=== PATIENT | female | born 1995 | race Caucasian/White ===

== ENCOUNTER 2021-07-20 20:53 | Inpatient (IN) | payer MEDICAID, SELFPAY ==
[2021-07-20] VITALS (8 sets, daily range): BP systolic 110–126; BP diastolic 53–79; PULSE 92–107; RESP 24–37; TEMP 39.4–39.5; O2SAT 88–97; BMI 37.5; BMI 37.8
--- NOTE | 2021-07-20 21:34 | EKG12_ITS ---
Test Reason : SOB Blood Pressure : / mmHG Vent. Rate : 095 BPM Atrial Rate : 095 BPM P-R Int : 144 ms QRS Dur : 086 ms QT Int : 350 ms P-R-T Axes : 030 -20 007 degrees QTc Int : 439 ms Normal sinus rhythm Nonspecific T wave abnormality Poor R wave progression Abnormal ECG Confirmed by ROSIO LOPEZ, FRANCISCO JAVIER ([id number]), slot editor BRENDA JAFFE ([id number]) on 07/25/2021 10:20:20 AM Referred By: BB Confirmed By:FRANCISCO JAVIER AVELAR MD
--- NOTE | 2021-07-20 21:50 | RAD_ITS ---
INDICATION: sob EXAMINATION/TECHNIQUE: X-RAY - XR Chest 1 View COMPARISON: None. FINDINGS: Retrocardiac airspace opacities. Low lung volumes. The cardiomediastinal silhouette is unremarkable. No pleural effusion or pneumothorax. No acute osseous abnormalities. RAD/Chest 1 View (Portable) IMPRESSION: Retrocardiac airspace opacities concerning for infection.. Electronically Signed: Rufus Ferreira MD at 22:46 EDT Tel , Service support ,
[2021-07-20] MEDS: Ketorolac 15 MG/ML Vial IV (21:54)
[2021-07-20] MEDS: Ondansetron 4 MG/2 ML Vial IV (21:54)
[2021-07-20] MEDS: 0.9% Normal Saline 1,000 ML 1000 ML IV (21:54)
[2021-07-20 21:57] LABS: Absolute Lymphocyte Count 0.54 X10^3/uL (0.83-4.51); Absolute Neutrophil Count 1.9 X10^3/uL (2.0-7.7); Hematocrit 41.9 % (37-47); Hemoglobin 13.4 g/dL (12.0-15.0); Lymphocyte # 0.54 X10^3/ul (0.83-4.51); Mean Corpuscular Hgb 27.6 pg (27.0-32.0); Mean Corpuscular Volume 86.4 fL (81-99); Mean Platelet Vol. 11.5 fl (6.2-12.0); Monocyte# 0.11 X10^3/uL; Monocyte% 4.3 % (0-10); NRBC Flagged by Analyzer 0 % (0-5); Neutrophil # 1.91 X10^3/uL (2.7-7.7); Neutrophil % 74.3 % (47-70); POSITIVE COUNT YES; POSITIVE DIFFERENTIAL YES; Platelet Count 86 K/mm3 (150-450); RBC Distribution Width CV 12.9 % (11.6-14.6); RBC Distribution Width SD 40.5 fl (35.1-43.9); Red Blood Count 4.85 M/mm3 (4.2-5.4); White Blood Count 2.6 K/mm3 (4.4-11.0)
[2021-07-20 22:15] LABS: ALB/GLOB Ratio 0.9 RATIO (0.9-2.4); AST(SGOT) 24 U/L (15-37); Alanine Aminotransfer ALT/SGPT 22 U/L (13-56); Albumin, Serum 3.4 g/dL (3.2-5.0); Alkaline Phosphatase 70 U/L (45-117); Anion Gap 5 (5-15); BUN 9 mg/dL (7-18); BUN/Creat Ratio 12.4 RATIO (10-20); Calcium,Total 8.3 mg/dL (8.5-10.1); Chloride 106 mmol/L (98-107); Creatinine, Serum 0.72 mg/dL (0.55-1.02); Differential Indicated SCAN CRITERIA MET; EST Glomerular Filtration Rate 102 mL/min (>60); Est Glom Filt Rate - Afr Amer 123 mL/min (>60); Globulin 3.9 g/dL (2.2-4.2); Glucose 92 mg/dL (74-106); Lipase 42 U/L (73-393); Potassium 3.7 mmol/L (3.5-5.1); Protein, Total 7.3 g/dL (6.4-8.2); Sodium Level 139 mmol/L (136-145)
[2021-07-20 22:38] LABS: Differential Comment SCANNED; Platelet Estimate MOD DEC (ADEQ)
--- NOTE | 2021-07-20 23:22 | EX.ED.DYSGE1 ---
HPI History of Present Illness Chief Complaint: Shortness of Breath Narrative Narrative: Patient is evaluated for worsening shortness of breath and symptoms related to Covid. She was seen at [facility] yesterday where she was diagnosed with Covid. Patient states started with headache and progressed to loss of taste. She then developed chest tightness and shortness of breath. She has myalgias, fever and lightheadedness. She called 911 because she felt she is going to pass out. Yesterday she is prescribed a Z-Roderick, Zofran and is also been taking Mucinex and Tylenol. She is not had a Covid vaccine. Patient denied concern for and states she started her period today. [facility] Medical History History of miscarriage Morbid obesity Home Medications albuterol sulfate [Ventolin HFA] 2 puff INHALATION Q6H PRN 07/20/21 [History Last Taken 07/20/21 17:00] azithromycin [Zithromax Z-Roderick] mg PO 07/20/21 [History Last Taken Unknown] ondansetron [Zofran ODT] 4 mg PO Q6H 07/20/21 [History Last Taken Unknown] B12 2,000 mcg PO/SL 07/21/21 [History Last Taken 07/20/21 09:00] Bariatric Multivitamins 1 cap DAILY 07/21/21 [History Last Taken 07/20/21 09:00] Vitamin D3 8,000 units DAILY 07/21/21 [History Last Taken 07/20/21 09:00] Allergy/AdvReac Type Severity Reaction Status Date / Time latex Allergy Rash Verified 07/20/21 20:55 Surgical History History of gastric bypass Social History household members: spouse Smoking Status: Never smoker alcohol intake: never substance use type: does not use ROS ROS ED Constitutional Constitutional ED: Reports chills, fever(s) and sweats Eyes Eyes: Denies blurry vision or change in vision ENT ENT ED: Reports rhinorrhea and sore throat Cardiovascular Cardiovascular: Reports chest pain Respiratory/Chest Respiratory/Chest: Reports cough, dyspnea and dyspnea on exertion Gastrointestinal Gastrointestinal: Reports nausea; Denies abdominal pain, diarrhea or vomiting Genitourinary Genitourinary ED: Reports other Details: Decreased frequency of urination ; Denies dysuria or hematuria Musculoskeletal Musculoskeletal: Reports myalgias Integumentary Denies rash Neurologic Neurologic: Reports headache(s); Denies weakness EXAM Physical Exam Const Vital Signs: 07/20/21 20:56 07/20/21 21:02 07/20/21 21:08 Temperature 103.1 F H 103.1 F H Temperature Source Oral Oral Pulse Rate 103 H 102 H Respiratory Rate 30 H 37 H Respiratory Effort Short of Breath Respiratory Pattern Bradypnea Blood Pressure 119/53 L 110/79 Blood Pressure Mean 75 89 Pulse Ox 95 97 Oxygen Delivery Method Nasal Cannula Nasal Cannula Nasal Cannula Oxygen Flow Rate (L/min) 2 2 2 07/20/21 21:57 07/20/21 22:02 07/20/21 22:10 Temperature 103 F H Temperature Source Oral Pulse Rate 94 Respiratory Rate 25 H Respiratory Effort Respiratory Pattern Blood Pressure 126/78 H Blood Pressure Mean 94 Pulse Ox 96 94 94 Oxygen Delivery Method Room Air Nasal Cannula Nasal Cannula Oxygen Flow Rate (L/min) 2 2 07/20/21 23:00 07/20/21 23:28 Temperature 102.9 F H 102.9 F H Temperature Source Oral Oral Pulse Rate 92 92 Respiratory Rate 24 H 24 H Respiratory Effort Respiratory Pattern Blood Pressure 122/60 H 122/60 H Blood Pressure Mean 80 80 Pulse Ox 94 94 Oxygen Delivery Method Nasal Cannula Nasal Cannula Oxygen Flow Rate (L/min) 2 2 Positive well nourished and well developed Constitutional Narrative: Ill-appearing General Appearance ED: well developed HEENT Reports TM's clear and dry mucous membranes Tympanic Membrane ED: Yes TM's clear Mouth ED: Yes dry mucous membranes Mouth: dry mucous membranes Eyes PERRL and EOMs intact bilaterally Neck no lymphadenopathy and supple Neck Narrative: No meningeal signs Chest Wall inspection of chest normal Resp normal respiratory effort Auscultation: diminished lung sounds; Negative for wheezes Cardio regular rhythm and no murmurs Rate: tachycardic GI normal to inspection, nondistended, normoactive bowel sounds Palpation: soft Extremity normal to inspection General Extremety ED: Negative for edema or tenderness General Extremity: Negative for edema Neuro oriented x3 and CN's II-XII intact bilaterally Sensorium / Orientation: alert Motor Exam: general weakness Psych mental status grossly normal Skin no rashes or lesions noted MDM MDM MDM Narrative Medical decision making narrative: Patient evaluated for worsening symptom associated with COVID-19 infection. She is hypoxic in the emergency room. She has leukopenia of 2.6 which is consistent with a viral illness. She also has a thrombocytopenia of 86. No other significant electrolyte abnormalities. Patient is admitted for hypoxia she is 88% on room air. She is given IV fluids, Toradol and Zofran in the ER. After patient was admitted she did tell staff that she found that she is 1 week ago. Lab Data Labs: Laboratory Results - last 24 hr 07/20/21 07/20/21 07/20/21 21:00 21:00 21:00 WBC 2.6 L RBC 4.85 Hgb 13.4 Hct 41.9 MCV 86.4 MCH 27.6 MCHC 32.0 RDW Std Deviation 40.5 RDW Coeff of Qing 12.9 Plt Count 86 L MPV 11.5 Immature Gran % (Auto) 0.400 Neut % (Auto) 74.3 H Lymph % (Auto) 21.0 [place] % (Auto) 4.3 Eos % (Auto) 0.0 Baso % (Auto) 0.0 Absolute Neuts (auto) 1.9 L Absolute Lymphs (auto) 0.54 L Nucleated RBC % 0 Differential Comment SCANNED Diff Path Review May foll Platelet Estimate MOD DEC Sodium 139 Potassium 3.7 Chloride 106 Carbon Dioxide 28.0 Anion Gap 5 BUN 9 Creatinine 0.72 Estim Creat Clear Calc 108.90 Est GFR (MDRD) Af Amer 123 Est GFR (MDRD) Non-Af 102 BUN/Creatinine Ratio 12.4 Glucose 92 Calcium 8.3 L Phosphorus 2.9 Magnesium 2.0 Ferritin 162 Total Bilirubin 0.30 AST 24 ALT 22 Alkaline Phosphatase 70 Lactate Dehydrogenase 216 C-React Prot Ext Range 82.80 H B-Natriuretic Peptide Total Protein 7.3 Albumin 3.4 Globulin 3.9 Albumin/Globulin Ratio 0.9 Lipase 42 L Procalcitonin Serum , Qual 07/20/21 07/20/21 07/20/21 21:00 21:00 21:00 WBC RBC Hgb Hct MCV MCH MCHC RDW Std Deviation RDW Coeff of Qing Plt Count MPV Immature Gran % (Auto) Neut % (Auto) Lymph % (Auto) [place] % (Auto) Eos % (Auto) Baso % (Auto) Absolute Neuts (auto) Absolute Lymphs (auto) Nucleated RBC % Differential Comment Diff Path Review Platelet Estimate Sodium Potassium Chloride Carbon Dioxide Anion Gap BUN Creatinine Estim Creat Clear Calc Est GFR (MDRD) Af Amer Est GFR (MDRD) Non-Af BUN/Creatinine Ratio Glucose Calcium Phosphorus Magnesium Ferritin Total Bilirubin AST ALT Alkaline Phosphatase Lactate Dehydrogenase C-React Prot Ext Range B-Natriuretic Peptide 7.1 Total Protein Albumin Globulin Albumin/Globulin Ratio Lipase Procalcitonin 0.23 H Serum , Qual POSITIVE H Radiography Chest X-Ray - ED: 1 View, Read by ED Physician, Read by Radiologist and Left Infiltrate Diagnostic Testing: Radiology Impression Chest X-Ray 07/20/21 21:50 IMPRESSION: Retrocardiac airspace opacities concerning for infection.. Electronically Signed: Rufus Ferreira MD at 22:46 EDT Tel , Service support , Rhythm Strip Rhythm Strip: Sinus Rhythm Rate: 95 Ectopy: None EKG Initial EKG: Attestation: I personally reviewed and interpreted this EKG as follows: Interpretation: Sinus Rhythm Comments: Normal sinus rhythm at a rate of 95 Normal axis Normal intervals Normal ST segments Discharge Plan Dx/Rx/DC Orders Clinical Impression: Pneumonia due to COVID-19 virus, Hypoxia Disposition Disposition: Acute Care Hospital [facility] Discharge Date/Time: 07/20/21 23:55
[2021-07-20] MEDS: dexAMETHasone 10 MG/ML Vial 6 MG PO.IVFORM (23:34)
--- NOTE | 2021-07-20 23:47 | PCM.HP.STD ---
HPI - General General Date of Admission: 07/20/21 Date of Service: 07/20/21 Chief Complaint: COVID symptoms, worsening. HPI Narrative The patient is a 26 y/o F w/ PMHx: Obesity s/p 12/30/20 Yana-en-Y gastric bypass otherwise healthy, reporting A+ blood type, no history of COVID vaccination who presents to the [facility] ED on 07/20/21 with history of onset of Covid type symptoms starting 4 days prior on Sunday with fever, chills, frontal headaches, nausea with dry heaving as well as abdominal cramping without any associated diarrhea, body aches, cough and progressively worsening dyspnea prompting ED evaluation. Patient was initially diagnosed with positive Covid testing at [facility] on 07/19/2021. Patient's denies any current symptoms nor any other children at home. Patient is also unvaccinated. Work-up in the ED included T103.1, heart rate 103, 19/53, respiratory rate up to 37, patient down to 87 to 88% resting on room air although improved currently to 96% on 3 L nasal cannula, CBC with WC 2.6, human 13.4, platelet 86 with neutropenia and lymphopenia, CMP not marked appearing, lipase 42, chest x-ray with retrocardiac airspace opacities consistent with Covid pneumonia. In the ED patient administered NS bolus as well as IV Decadron 6 mg x 1. [facility] Medical History (Updated 07/21/21 @ 00:[address] Alecia Sal MD) History of miscarriage Morbid obesity Home Medications albuterol sulfate [Ventolin HFA] 2 puff INHALATION Q6H PRN 07/20/21 [History Last Taken Unknown] azithromycin [Zithromax Z-Roderick] mg PO 07/20/21 [History Last Taken Unknown] ondansetron [Zofran ODT] 4 mg PO Q6H 07/20/21 [History Last Taken Unknown] B12 2,000 mcg PO/SL 07/21/21 [History Last Taken 07/20/21 09:00] Bariatric Multivitamins 1 cap DAILY 07/21/21 [History Last Taken 07/20/21 09:00] Vitamin D3 8,000 units DAILY 07/21/21 [History Last Taken 07/20/21 09:00] Allergy/AdvReac Type Severity Reaction Status Date / Time latex Allergy Rash Verified 07/20/21 20:55 no significant family history (Patient denies marked maternal or paternal family history including HD, DM, CA.) Surgical History History of gastric bypass Social History (Updated 07/21/21 @ 00:[address] Alecia Sal MD) household members: spouse Smoking Status: Never smoker alcohol intake: never substance use type: does not use ROS ROS Narrative Admission Review of Systems: CONSTITUTIONAL: No weight loss, + fever, chills, weakness or fatigue. HEENT: + THOMAS. Eyes: No visual loss, blurred vision, double vision or yellow sclerae. Ears, Nose, Throat: No hearing loss, sneezing, congestion, runny nose or sore throat. SKIN: No rash or itching, lesions, wounds. CARDIOVASCULAR: + Pleuritic chest pain. No palpitations, edema, orthopnea, syncopal events. RESPIRATORY: + shortness of breath, cough without marked sputum, No wheezing, hemoptysis. GASTROINTESTINAL: + anorexia, nausea, vomiting, No abdominal pain, diarrhea, melena, BRBPR. GENITOURINARY: No dysuria, frequency, urgency or retention. NEUROLOGICAL: + headache, No dizziness, syncope, paralysis, ataxia, numbness or tingling in the extremities, focal weakness, change in bowel or bladder control, seizure. MUSCULOSKELETAL: + muscle, back pain, joint pain or stiffness. HEMATOLOGIC: No anemia, bleeding or bruising. LYMPHATICS: No enlarged nodes. No history of splenectomy. PSYCHIATRIC: No history of depression or anxiety. ENDOCRINOLOGIC: No reports of sweating, cold or heat intolerance. No polyuria or polydipsia. ALLERGIES: No history of asthma, hives, eczema or rhinitis. Vital Signs Vital Signs Vital Signs: 07/20/21 20:56 07/20/21 21:02 07/20/21 21:08 Temperature 103.1 F H 103.1 F H Temperature Source Oral Oral Pulse Rate 103 H 102 H Respiratory Rate 30 H 37 H Respiratory Effort Short of Breath Respiratory Pattern Bradypnea Blood Pressure 119/53 L 110/79 Blood Pressure Mean 75 89 Pulse Ox 95 97 Oxygen Delivery Method Nasal Cannula Nasal Cannula Nasal Cannula Oxygen Flow Rate (L/min) 2 2 2 07/20/21 21:57 07/20/21 22:02 07/20/21 22:10 Temperature 103 F H Temperature Source Oral Pulse Rate 94 Respiratory Rate 25 H Respiratory Effort Respiratory Pattern Blood Pressure 126/78 H Blood Pressure Mean 94 Pulse Ox 96 94 94 Oxygen Delivery Method Room Air Nasal Cannula Nasal Cannula Oxygen Flow Rate (L/min) 2 2 07/20/21 23:00 07/20/21 23:28 Temperature 102.9 F H 102.9 F H Temperature Source Oral Oral Pulse Rate 92 92 Respiratory Rate 24 H 24 H Respiratory Effort Respiratory Pattern Blood Pressure 122/60 H 122/60 H Blood Pressure Mean 80 80 Pulse Ox 94 94 Oxygen Delivery Method Nasal Cannula Nasal Cannula Oxygen Flow Rate (L/min) 2 2 Weight Weight: 232 lb 12.93 oz Body Mass Index (BMI) 37.5 Physical Exam Narrative Physical Examination: General: Awake, alert, oriented x 3 and cooperative, patient fatigued and ill-appearing, no evidence respiratory distress. Skin: Normal color, normal turgor, no icterus, no cyanosis. HEENT: AT/NC, EOMI, PERRLA, dry MM, no carotid bruits or JVD noted. Lungs: Diffusely diminished, no evidence respiratory distress, no rales, ronchi or wheezing. Heart: Mildly tachycardic with regular rhythm; no gallop, rub audible. Abdomen: Soft, morbidly obese, NTTP, ND, distant hyperactive BS, no obvious HSM however habitus makes examination difficult. Extremities: No cyanosis, clubbing, or edema. Neurological: Patient awake, alert, oriented as noted, cognitive function intact; pupils equally reactive to light and accommodation, cranial nerves II-XII grossly normal, moving all 4 extremities, no focal deficits, strength severely global decrease secondary to acute presentation. Psychiatric: Affect appears fatigued, ill-appearing, no acute evidence of depressive or anxiety feelings. Results Lab / Micro Data Result Diagrams: 07/20/21 21:00 07/20/21 21:00 Labs: Laboratory Results - last 24 hr 07/20/21 21:00: WBC 2.6 L, RBC 4.85, Hgb 13.4, Hct 41.9, MCV 86.4, MCH 27.6, MCHC 32.0, RDW Std Deviation 40.5, RDW Coeff of Qing 12.9, Plt Count 86 L, MPV 11.5, Immature Gran % (Auto) 0.400, Neut % (Auto) 74.3 H, Lymph % (Auto) 21.0, [place] % (Auto) 4.3, Eos % (Auto) 0.0, Baso % (Auto) 0.0, Absolute Neuts (auto) 1.9 L, Absolute Lymphs (auto) 0.54 L, Nucleated RBC % 0, Differential Comment SCANNED, Diff Path Review March, Platelet Estimate MOD 07/20/21 21:00: Sodium 139, Potassium 3.7, Chloride 106, Carbon Dioxide 28.0, Anion Gap 5, BUN 9, Creatinine 0.72, Estim Creat Clear Calc 108.90, Est GFR (MDRD) Af Amer 123, Est GFR (MDRD) Non-Af 102, BUN/Creatinine Ratio 12.4, Glucose 92, Calcium 8.3 L, Total Bilirubin 0.30, AST 24, ALT 22, Alkaline Phosphatase 70, Total Protein 7.3, Albumin 3.4, Globulin 3.9, Albumin/Globulin Ratio 0.9, Lipase 42 L Radiology Impression Chest X-Ray 07/20/21 21:50 IMPRESSION: Retrocardiac airspace opacities concerning for infection.. Electronically Signed: Rufus Ferreira MD at 22:46 EDT Tel , Service support , Assessment & Plan Assessment/Plan (1) Hypoxia: (2) Pneumonia due to COVID-19 virus: PLAN: The patient is a 26 y/o F w/ PMHx: Obesity s/p 12/30/20 Yana-en-Y gastric bypass otherwise healthy, reporting A+ blood type, no history of COVID vaccination who presents to the [facility] ED on 07/20/21 with history of onset of Covid type symptoms starting 4 days prior on Sunday with fever, chills, frontal headaches, nausea with dry heaving as well as abdominal cramping without any associated diarrhea, body aches, cough and progressively worsening dyspnea prompting ED evaluation. 1. Acute Hypoxia secondary to Acute Bilateral Pneumonia secondary to Acute Viral Syndrome, COVID-19: Will admit to the AR telemetry with COVID precautions, will maintain on oxygen with wean as tolerated to room air, PRN albuterol, HOB, IS parameters w/ pending sputum cultures, respiratory viral panel and urine antigens, will obtain D-dimer, procalcitonin, CRP, CPK, Ferritin, LDH, trop and BNP, continue supportive care including q 2 hour turning including prone given no prone bed availability and judicious hydration, closely monitor for worsening status for ARDS and multiorgan failure, will initiate and continue IV decadron x 10 doses, given presentation will also initiate IV remdesivir but defer to discretion of Infectious disease. 2. Leukopenia, thrombocytopenia, acute: Secondary to #1, admission WBC 2.6, platelet 86, associated with acute Covid illness, will trend CBC. 3. History of gastric bypass: Patient with history of Yana-en-Y gastric bypass 12/30/2020, she notes she has been taking vitamins however she has been frequently having to alter supplementation secondary to levels which were recently performed she notes. 4. Obesity: Weight loss and lifestyle changes encouraged. 5. DVT prophylaxis: SCD, Lovenox. 6. CODE status: Patient does not have healthcare power of patent prosecution attorney nor living will, given severity of Covid presentation discussed CODE status at length including difference between FULL code, DNR-CCA and DNR-CC status. Following discussions about the differences in these status, requested Full Code status. Amenable to airvo and BIPAP if necessary. Advanced Care Planning Face to Face Time: 16 minutes.
[2021-07-21] VITALS (17 sets, daily range): BP systolic 99–131; BP diastolic 50–73; PULSE 50–79; RESP 20–30; TEMP 36.4–36.9; O2SAT 93–97
[2021-07-21 00:16] LABS: BNP,B-Type NATRIURETIC PEPTIDE 7.1 pg/mL (0-100)
[2021-07-21 00:18] LABS: Ferritin 162 ng/mL (8-252); LDH 216 U/L (84-246); Phosphorus 2.9 mg/dL (2.5-4.9)
[2021-07-21 00:25] LABS: Procalcitonin 0.23 ng/mL (0.00-0.09)
[2021-07-21] MEDS: 0.9% Normal Saline 1,000 ML 100 ML IV ×3 (00:36→21:11)
[2021-07-21 00:54] LABS: Internal QC Validated? YES +Cl - CLEAR BKGD
[2021-07-21 00:55] LABS: Pregnancy, Serum, hCG Quali. POSITIVE Negative
[2021-07-21] MEDS: Acetaminophen 325 MG Tablet 650 MG PO ×4 (01:01→21:04)
[2021-07-21] MEDS: MELATONIN 3 MG TABLET PO ×2 (01:02→21:04)
[2021-07-21] MEDS: guaiFENesin 10 ML UDC (200MG/10ML) 20 ML PO ×3 (01:02→21:03)
[2021-07-21 01:03] LABS: D-Dimer Quantitative (DVT/PE) 0.48 FEU/ug/m (0.27-0.49)
--- NOTE | 2021-07-21 05:33 | NURSING ---
called lab to check if they were able to run pts legionella and strep pneumoniae. states they haven't and will have result in 20 mins.
[2021-07-21 05:52] LABS: Absolute Lymphocyte Count 0.45 X10^3/uL (0.83-4.51); Absolute Neutrophil Count 0.9 X10^3/uL (2.0-7.7); Hematocrit 39.5 % (37-47); Hemoglobin 12.6 g/dL (12.0-15.0); Lymphocyte # 0.45 X10^3/ul (0.83-4.51); Lymphocyte % 32.1 % (19-41); Mean Corp Hgb Conc 31.9 g/dL (32-36); Mean Corpuscular Hgb 27.8 pg (27.0-32.0); Mean Platelet Vol. 11.5 fl (6.2-12.0); Monocyte# 0.06 X10^3/uL; Monocyte% 4.3 % (0-10); NRBC Flagged by Analyzer 0 % (0-5); Neutrophil # 0.88 X10^3/uL (2.7-7.7); Neutrophil % 62.9 % (47-70); POSITIVE COUNT YES; POSITIVE DIFFERENTIAL YES; Platelet Count 81 K/mm3 (150-450); RBC Distribution Width SD 41.1 fl (35.1-43.9); Red Blood Count 4.54 M/mm3 (4.2-5.4); White Blood Count 1.4 K/mm3 (4.4-11.0)
[2021-07-21 06:03] LABS: Differential Indicated SCAN CRITERIA MET
[2021-07-21 06:11] LABS: ALB/GLOB Ratio 0.9 RATIO (0.9-2.4); AST(SGOT) 21 U/L (15-37); Alanine Aminotransfer ALT/SGPT 20 U/L (13-56); Albumin, Serum 3.1 g/dL (3.2-5.0); Alkaline Phosphatase 62 U/L (45-117); Anion Gap 6 (5-15); BUN 10 mg/dL (7-18); BUN/Creat Ratio 22.1 RATIO (10-20); Chloride 108 mmol/L (98-107); Creatinine, Serum 0.45 mg/dL (0.55-1.02); EST Glomerular Filtration Rate 175 mL/min (>60); Est Glom Filt Rate - Afr Amer 212 mL/min (>60); Estimated Creatinine Clearance 174.24 ml/min; Globulin 3.4 g/dL (2.2-4.2); Glucose 116 mg/dL (74-106); Potassium 3.9 mmol/L (3.5-5.1); Protein, Total 6.5 g/dL (6.4-8.2); Sodium Level 138 mmol/L (136-145)
[2021-07-21 08:16] LABS: hCG Titer Quant., Serum 114 mIU/mL (1-3)
[2021-07-21] MEDS: Ondansetron 4 MG/2 ML Vial IV ×2 (09:18→21:03)
[2021-07-21] MEDS: dexAMETHasone 10 MG/ML Vial 6 MG IV (09:22)
[2021-07-21] MEDS: BENZOCAINE/MENTHOL 1 LOZENGE MUCOUS MEM (12:25)
[2021-07-21] MEDS: Cholecalciferol (VIT D3) 25 MCG TABLET (1,000 UNITS) 200 MCG PO (12:25)
[2021-07-21 12:29] LABS: Pathologist Review Reviewed
[2021-07-21 12:31] LABS: Pathologist Review Reviewed
[2021-07-21] MEDS: Albuterol 2.5 MG/3 ML VIAL.NEB. INHALATION (12:45)
--- NOTE | 2021-07-21 13:08 | CASEMGMT ---
WALDEMAR VIVAS Assessment: Face to Face with pt for initial transition planning/care coordination assessment. WALDEMAR VIVAS introduced self and role at [facility], pt voices understanding and consents to assessment. Pt is A/O x4 and answers all questions appropriately at this time. Pt sitting up in bed with O2 on in no distress. Care providers, pharmacy, and demographics verified/updated. 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 Preferred Pharmacy: [facility] while inpatient Insurance: [facility] Prescription Benefit: yes LW/HPOA: Pt denies having a LW/DPOA and denies need for info regarding this. LNOK: Mingo Manning, . Living Arrangements: Pt lives with and 3 children in a single story house with two steps to enter. Pt reports being I in ADL's and denies concerns at home. Transportation: Pt is able to drive self and denies concerns with transportation. DME/HHC/SNF: Pt denies having any DME in the home or previous HHC. Pt was tested at [facility] on 07/19/21. Pt states she has been quarantining from her family already. She has been staying in the master bedroom that has a bathroom as well. She has family who are able to provide her with groceries and supplies. Pt recently bought a pulse ox for home use. Provided pt with local in network DME companies. Pt choses [employer] should she need O2 upon dc. Pt states no concerns with going home at time of dc. Pt states no further concerns/needs. CM to follow. Advised pt to ask CM if any further question/concerns/needs arise, voices understanding. Pt Goal: Home Plan: Home
[2021-07-21] MEDS: Cyanocobalamin 500 MCG Tablet 2000 MCG PO (15:33)
--- NOTE | 2021-07-21 16:26 | PCM.PN.HOSP ---
Subjective Subjective Patient states that she does get significantly winded with ambulation. At rest she states she does not notice as much shortness of breath. She states she is overall tired. Reports she had a positive test at home on Sunday which is the day she started having symptoms of Covid. She did take her remdesivir last evening and is agreeable to further treatment. She reported very minimal spotting. We did discuss that she had a positive test here and she agrees that it would be very early on in her if she is . She has 3 children at home. Objective Data Objective Data Vital Signs: Vital Signs Temp Pulse Resp BP Pulse Ox 98.0 F 57 L 20 H 111/62 95 07/21/21 15:35 07/21/21 15:35 07/21/21 15:35 07/21/21 15:35 07/21/21 15:35 Oxygen Flow Rate (L/min) 4 Oxygen Delivery Method Nasal Cannula Weight: 106.141 kg Body Mass Index (BMI) 37.8 Intake & Output: Intake and Output for Last 24 Hours 07/19/21 07/20/21 07/21/21 23:59 23:59 23:59 Intake Total 1000 / 1000 1480.00 / 1480.00 Output Total 350 / 350 Balance 1000 / 1000 1130.00 / 1130.00 Medical Nutrition Assessment Dietitian: Malnutrition Criteria Met Start: 07/21/21 10:21 Freq: Status: Active Protocol: Document 07/21/21 10:22 BP (Rec: 07/21/21 10:22 BP [id number]) Nutrition Malnutrition Evidence of Malnutrition Exists Yes Malnutrition (severe): Acute Illness/Injury Evidenced By Suboptimal Energy Intake ( Severe),Weight Loss (Severe) Clinical Problem Acute Disease or Injury Related Malnutrition Etiology related to inadequate oral intake and unintentional wt loss Signs/Symptoms as evidenced by pt reports consuming >50% energy intake compared to typical intake x 6 days with 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 Status Active Problem Recommendation Dietitian Recommendations/Changes Continue Regular diet. Will discontinue ensure per pt request- declines further ONS at this time, will provide as pt accepting. Lab / Micro Data Result Diagrams: 07/21/21 05:18 07/21/21 05:18 Labs: Laboratory Results - last 24 hr 07/20/21 21:00: WBC 2.6 L, RBC 4.85, Hgb 13.4, Hct 41.9, MCV 86.4, MCH 27.6, MCHC 32.0, RDW Std Deviation 40.5, RDW Coeff of Qing 12.9, Plt Count 86 L, MPV 11.5, Immature Gran % (Auto) 0.400, Neut % (Auto) 74.3 H, Lymph % (Auto) 21.0, [place] % (Auto) 4.3, Eos % (Auto) 0.0, Baso % (Auto) 0.0, Absolute Neuts (auto) 1.9 L, Absolute Lymphs (auto) 0.54 L, Nucleated RBC % 0, Differential Comment SCANNED, Diff Path Review Reviewed, Platelet Estimate MOD 07/20/21 21:00: Sodium 139, Potassium 3.7, Chloride 106, Carbon Dioxide 28.0, Anion Gap 5, BUN 9, Creatinine 0.72, Estim Creat Clear Calc 108.90, Est GFR (MDRD) Af Amer 123, Est GFR (MDRD) Non-Af 102, BUN/Creatinine Ratio 12.4, Glucose 92, Calcium 8.3 L, Total Bilirubin 0.30, AST 24, ALT 22, Alkaline Phosphatase 70, Total Protein 7.3, Albumin 3.4, Globulin 3.9, Albumin/Globulin Ratio 0.9, Lipase 42 L 07/20/21 21:00: Phosphorus 2.9, Magnesium 2.0, Ferritin 162, Lactate Dehydrogenase 216, C-React Prot Ext Range 82.80 H 07/20/21 21:00: B-Natriuretic Peptide 7.1 07/20/21 21:00: Procalcitonin 0.23 H 07/20/21 21:00: Serum , Qual POSITIVE H 07/21/21 00:30: D-Dimer Quant (PE/DVT) 0.48 07/21/21 05:18: WBC 1.4 L*, RBC 4.54, Hgb 12.6, Hct 39.5, MCV 87.0, MCH 27.8, MCHC 31.9 L, RDW Std Deviation 41.1, RDW Coeff of Qing 13.0, Plt Count 81 L, MPV 11.5, Immature Gran % (Auto) 0.700, Neut % (Auto) 62.9, Lymph % (Auto) 32.1, [place] % (Auto) 4.3, Eos % (Auto) 0.0, Baso % (Auto) 0.0, Absolute Neuts (auto) 0.9 L, Absolute Lymphs (auto) 0.45 L, Nucleated RBC % 0, Diff Path Review Reviewed 07/21/21 05:18: Sodium 138, Potassium 3.9, Chloride 108 H, Carbon Dioxide 24.0, Anion Gap 6, BUN 10, Creatinine 0.45 L, Estim Creat Clear Calc 174.24, Est GFR (MDRD) Af Amer 212, Est GFR (MDRD) Non-Af 175, BUN/Creatinine Ratio 22.1 H, Glucose 116 H, Calcium 8.0 L, Total Bilirubin 0.30, AST 21, ALT 20, Alkaline Phosphatase 62, Total Protein 6.5, Albumin 3.1 L, Globulin 3.4, Albumin/Globulin Ratio 0.9 07/21/21 05:40: HCG, Quant 114 H Micro: Microbiology 07/21/21 12:15 Sputum, Expectorated/Coughed Gram Stain - Final 07/21/21 01:00 Mucosa - Nasopharyngeal Respiratory Panel (PCR) - Final 07/21/21 01:07 Urine, Clean Catch Streptococcus pneumoniae Antigen (M - Final 07/21/21 01:07 Urine, Clean Catch Legionella Antigen - Final Radiography Diagnostic Testing: Radiology Impression Chest X-Ray 07/20/21 21:50 IMPRESSION: Retrocardiac airspace opacities concerning for infection.. Electronically Signed: Rufus Ferreira MD at 22:46 EDT Tel , Service support , Rhythm Strip Rhythm Strip: Sinus Rhythm Rate: 95 Ectopy: None Physical Exam Const alert, oriented x3 and no apparent distress Constitutional Narrative: Young white female, sitting up in bed watching television, appears fatigued, minimally short of breath with conversation, nontoxic however Exam Limitations: no limitations HEENT head/scalp atraumatic, moist oral mucous membranes and dentition normal HEENT Narrative: No thrush Head and Scalp: normocephalic Resp normal respiratory effort, no retractions, no use of accessory muscles and clear to auscultation bilaterally Resp Narrative: Diminished but clear Cardio regular rate, regular rhythm, S1 normal heart sound, S2 normal heart sound, no murmurs, no rub, no gallops, no clicks and no JVD GI normal to inspection, nondistended, normoactive bowel sounds, soft to palpation, non-tender and non-distended Extremity no clubbing, cyanosis or edema Peripheral Pulses: Yes pulses 2+ throughout Neuro oriented x3, CN's II-XII intact bilaterally, moves all extremities and no focal motor deficits Sensorium / Orientation: awake and alert Speech: speech normal Assessment & Plan Assessment/Plan (1) Pneumonia due to COVID-19 virus: (2) Acute respiratory failure with hypoxia: (3) Leukopenia: (4) Thrombocytopenia: (5) : PLAN: Acute hypoxic respiratory failure secondary to COVID-19 pneumonia -Continue remdesivir day 11/30 -Continue Decadron day 12/05 -Continue supplemental oxygen -Patient is currently 95% on 4 L nasal cannula -Continuous pulse oximetry -Wean oxygen as able -Once patient stabilizes from an oxygenation standpoint we will consider discharge Leukopenia/thrombocytopenia -Suspect related to Covid -Monitor counts -Urine was positive therefore quantitative was obtained -Serum quantitative was 114 and therefore she would be 1 to 2 weeks at this time -Repeat quantitative test in 48 hours as this should double if this is a viable -Patient states she did have some vaginal spotting on toilet paper but nothing more -Lovenox was held secondary to this and given that her platelet count is low at this time -Continue multivitamin History of Yana-en-Y gastric bypass surgery -This was done in 01/15/2021 -Continue vitamin supplementation Obesity -See above DVT prophylaxis -Hold Lovenox at this time -SCDs CODE STATUS -Full code Charges/Coding Visit Charges Inpatient E&M: 70235 Subs Hosp L2
[2021-07-22] VITALS (17 sets, daily range): BP systolic 106–151; BP diastolic 53–75; PULSE 40–99; RESP 20–25; TEMP 36.5–36.7; O2SAT 94–98
[2021-07-22] MEDS: guaiFENesin 10 ML UDC (200MG/10ML) 20 ML PO ×2 (03:43→10:07)
[2021-07-22] MEDS: Acetaminophen 325 MG Tablet 650 MG PO ×4 (03:43→22:38)
[2021-07-22] MEDS: Ondansetron 4 MG/2 ML Vial IV (04:08)
[2021-07-22] MEDS: Albuterol 2.5 MG/3 ML VIAL.NEB. INHALATION ×2 (04:13→11:04)
[2021-07-22 07:49] LABS: Absolute Neutrophil Count 2.8 X10^3/uL (2.0-7.7); Hematocrit 36.8 % (37-47); Hemoglobin 11.9 g/dL (12.0-15.0); Lymphocyte % 16.9 % (19-41); Mean Corp Hgb Conc 32.3 g/dL (32-36); Mean Corpuscular Hgb 27.4 pg (27.0-32.0); Mean Corpuscular Volume 84.8 fL (81-99); Mean Platelet Vol. 10.8 fl (6.2-12.0); Monocyte# 0.15 X10^3/uL; Monocyte% 4.2 % (0-10); NRBC Flagged by Analyzer 0 % (0-5); Neutrophil # 2.78 X10^3/uL (2.7-7.7); Neutrophil % 78.3 % (47-70); POSITIVE DIFFERENTIAL YES; Platelet Count 107 K/mm3 (150-450); RBC Distribution Width SD 40.6 fl (35.1-43.9); Red Blood Count 4.34 M/mm3 (4.2-5.4); White Blood Count 3.6 K/mm3 (4.4-11.0)
[2021-07-22 07:51] LABS: Differential Indicated SCAN CRITERIA MET
[2021-07-22 08:49] LABS: ALB/GLOB Ratio 0.8 RATIO (0.9-2.4); AST(SGOT) 20 U/L (15-37); Alanine Aminotransfer ALT/SGPT 20 U/L (13-56); Albumin, Serum 2.7 g/dL (3.2-5.0); Alkaline Phosphatase 52 U/L (45-117); Anion Gap 4 (5-15); BUN 8 mg/dL (7-18); BUN/Creat Ratio 25.7 RATIO (10-20); Calcium,Total 8.1 mg/dL (8.5-10.1); Chloride 110 mmol/L (98-107); Creatinine, Serum 0.31 mg/dL (0.55-1.02); EST Glomerular Filtration Rate 270 mL/min (>60); Est Glom Filt Rate - Afr Amer 326 mL/min (>60); Estimated Creatinine Clearance 252.93 ml/min; Globulin 3.2 g/dL (2.2-4.2); Glucose 112 mg/dL (74-106); Potassium 3.8 mmol/L (3.5-5.1); Protein, Total 5.9 g/dL (6.4-8.2); Sodium Level 140 mmol/L (136-145)
[2021-07-22] MEDS: 0.9% Normal Saline 1,000 ML 100 ML IV ×2 (10:06→22:42)
[2021-07-22] MEDS: dexAMETHasone 10 MG/ML Vial 6 MG IV (10:07)
[2021-07-22] MEDS: BENZOCAINE/MENTHOL 1 LOZENGE MUCOUS MEM (10:07)
[2021-07-22] MEDS: Cholecalciferol (VIT D3) 25 MCG TABLET (1,000 UNITS) 200 MCG PO (10:08)
[2021-07-22] MEDS: Cyanocobalamin 500 MCG Tablet 2000 MCG PO (10:08)
[2021-07-22 12:58] LABS: Pathologist Review Reviewed
--- NOTE | 2021-07-22 13:00 | PCM.PN.HOSP ---
Subjective Subjective Patient's oxygenation requirements have increased and she now on 5 L nasal cannula with oxygen saturation of 94 to 98%. She needs more with exertion. She continues to be tachypneic. She states she is very tired today but no other significant complaints. Objective Data Objective Data Vital Signs: Vital Signs Temp Pulse Resp BP Pulse Ox 98.1 F 60 25 H 107/66 98 07/22/21 12:29 07/22/21 12:29 07/22/21 12:29 07/22/21 12:29 07/22/21 12:29 Oxygen Flow Rate (L/min) 4 Oxygen Delivery Method Nasal Cannula Weight: 106.821 kg Body Mass Index (BMI) 37.8 Intake & Output: Intake and Output for Last 24 Hours 07/20/21 07/21/21 07/22/21 23:59 23:59 23:59 Intake Total 1000 / 1000 3003.34 / 3003.34 1298.33 / 1298.33 Output Total 1200 / 1200 1500 / 1500 Balance 1000 / 1000 1803.34 / 1803.34 -201.67 / -201.67 Medical Nutrition Assessment Dietitian: Malnutrition Criteria Met Start: 07/21/21 10:21 Freq: Status: Active Protocol: Document 07/21/21 10:22 BP (Rec: 07/21/21 10:22 BP [id number]) Nutrition Malnutrition Evidence of Malnutrition Exists Yes Malnutrition (severe): Acute Illness/Injury Evidenced By Suboptimal Energy Intake ( Severe),Weight Loss (Severe) Clinical Problem Acute Disease or Injury Related Malnutrition Etiology related to inadequate oral intake and unintentional wt loss Signs/Symptoms as evidenced by pt reports consuming >50% energy intake compared to typical intake x 6 days with 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 Status Active Problem Recommendation Dietitian Recommendations/Changes Continue Regular diet. Will discontinue ensure per pt request- declines further ONS at this time, will provide as pt accepting. Lab / Micro Data Result Diagrams: 07/22/21 07:20 07/22/21 07:20 Labs: Laboratory Results - last 24 hr 07/22/21 07:20: WBC 3.6 L, RBC 4.34, Hgb 11.9 L, Hct 36.8 L, MCV 84.8, MCH 27.4, MCHC 32.3, RDW Std Deviation 40.6, RDW Coeff of Qing 13.0, Plt Count 107 L, MPV 10.8, Immature Gran % (Auto) 0.600, Neut % (Auto) 78.3 H, Lymph % (Auto) 16.9 L, [place] % (Auto) 4.2, Eos % (Auto) 0.0, Baso % (Auto) 0.0, Absolute Neuts (auto) 2.8, Absolute Lymphs (auto) 0.60 L, Nucleated RBC % 0, Diff Path Review Reviewed 07/22/21 07:20: Sodium 140, Potassium 3.8, Chloride 110 H, Carbon Dioxide 26.0, Anion Gap 4 L, BUN 8, Creatinine 0.31 L, Estim Creat Clear Calc 252.93, Est GFR (MDRD) Af Amer 326, Est GFR (MDRD) Non-Af 270, BUN/Creatinine Ratio 25.7 H, Glucose 112 H, Calcium 8.1 L, Total Bilirubin 0.20, AST 20, ALT 20, Alkaline Phosphatase 52, Total Protein 5.9 L, Albumin 2.7 L, Globulin 3.2, Albumin/Globulin Ratio 0.8 L Micro: Microbiology 07/21/21 12:15 Sputum, Expectorated/Coughed Gram Stain - Final 07/21/21 12:15 Sputum, Expectorated/Coughed Respiratory Culture - Preliminary Appears to be normal respiratory mikaela. Further studies to follow. 07/21/21 01:00 Mucosa - Nasopharyngeal Respiratory Panel (PCR) - Final 07/21/21 01:07 Urine, Clean Catch Streptococcus pneumoniae Antigen (M - Final 07/21/21 01:07 Urine, Clean Catch Legionella Antigen - Final Rhythm Strip Rhythm Strip: Sinus Rhythm Rate: 95 Ectopy: None Physical Exam Const alert, oriented x3 and no apparent distress Constitutional Narrative: Young white female, sitting up in bed watching television, appears markedly fatigued, minimally short of breath with conversation, nontoxic but mild tachypnea Exam Limitations: no limitations HEENT head/scalp atraumatic, moist oral mucous membranes and dentition normal HEENT Narrative: Mallampati 2, no thrush noted Head and Scalp: normocephalic Resp normal respiratory effort, no retractions, no use of accessory muscles and clear to auscultation bilaterally Resp Narrative: Diminished but clear Cardio regular rate, regular rhythm, S1 normal heart sound, S2 normal heart sound, no murmurs, no rub, no gallops, no clicks and no JVD GI normal to inspection, nondistended, normoactive bowel sounds, soft to palpation, non-tender and non-distended Extremity no clubbing, cyanosis or edema Peripheral Pulses: Yes pulses 2+ throughout Neuro oriented x3, moves all extremities and no focal motor deficits Sensorium / Orientation: awake and alert Speech: speech normal Assessment & Plan Assessment/Plan (1) Pneumonia due to COVID-19 virus: (2) Acute respiratory failure with hypoxia: (3) Leukopenia: (4) Thrombocytopenia: (5) : PLAN: Acute hypoxic respiratory failure secondary to COVID-19 pneumonia -Continue remdesivir day 12/31 -Continue Decadron day 01/05 -Continue supplemental oxygen -Patient is currently 94-98% on 5L nasal cannula -Continuous pulse oximetry -Wean oxygen as able -Once patient stabilizes from an oxygenation standpoint we will consider discharge Leukopenia/thrombocytopenia -Suspect related to Covid -Counts improved--> white count up to 3.6 and platelets up to 107 -Monitor counts -Urine was positive therefore quantitative was obtained -Serum quantitative was 114 and therefore she would be 1 to 2 weeks at this time -Repeat quantitative test in a.m.--> this should double if this is a viable -No further spotting -We will retry Lovenox -Continue multivitamin History of Yana-en-Y gastric bypass surgery -This was done in 01/15/2021 -Continue vitamin supplementation -Patient has lost 85 pounds Obesity -See above DVT prophylaxis -Reinitiate Lovenox -SCDs CODE STATUS -Full code Charges/Coding Visit Charges Inpatient E&M: 63960 Subs Hosp L2
[2021-07-22] MEDS: proCHLORPERazine 10 MG/2 ML Vial 5 MG IV (14:28)
[2021-07-22] MEDS: Enoxaparin 40 MG/0.4 ML Syringe SC ×2 (14:31→22:41)
[2021-07-22] MEDS: MELATONIN 3 MG TABLET PO (22:48)
[2021-07-22] MEDS: 0.9% Saline Lock 10 ML Syringe IV (22:54)
[2021-07-23] VITALS (16 sets, daily range): BP systolic 109–122; BP diastolic 54–79; PULSE 40–61; RESP 18–24; TEMP 36.5–36.9; O2SAT 0–97
--- NOTE | 2021-07-23 02:14 | NURSING ---
PANDEMIC DOCUMENTATION initialized
[2021-07-23] MEDS: Ondansetron 4 MG/2 ML Vial IV (02:59)
[2021-07-23 07:33] LABS: Absolute Lymphocyte Count 0.75 X10^3/uL (0.83-4.51); Absolute Neutrophil Count 1.5 X10^3/uL (2.0-7.7); Hematocrit 37.4 % (37-47); Hemoglobin 11.9 g/dL (12.0-15.0); Lymphocyte # 0.75 X10^3/ul (0.83-4.51); Lymphocyte % 31.1 % (19-41); Mean Corp Hgb Conc 31.8 g/dL (32-36); Mean Corpuscular Hgb 27.4 pg (27.0-32.0); Mean Corpuscular Volume 86.2 fL (81-99); Mean Platelet Vol. 10.9 fl (6.2-12.0); Monocyte# 0.16 X10^3/uL; Monocyte% 6.6 % (0-10); NRBC Flagged by Analyzer 0 % (0-5); Neutrophil # 1.48 X10^3/uL (2.7-7.7); Neutrophil % 61.5 % (47-70); Platelet Count 140 K/mm3 (150-450); RBC Distribution Width CV 12.9 % (11.6-14.6); RBC Distribution Width SD 40.5 fl (35.1-43.9); Red Blood Count 4.34 M/mm3 (4.2-5.4); White Blood Count 2.4 K/mm3 (4.4-11.0)
[2021-07-23] MEDS: Albuterol 2.5 MG/3 ML VIAL.NEB. INHALATION (07:34)
[2021-07-23 08:02] LABS: hCG Titer Quant., Serum 172 mIU/mL (1-3)
[2021-07-23 08:04] LABS: ALB/GLOB Ratio 0.8 RATIO (0.9-2.4); AST(SGOT) 20 U/L (15-37); Alanine Aminotransfer ALT/SGPT 23 U/L (13-56); Albumin, Serum 2.8 g/dL (3.2-5.0); Alkaline Phosphatase 48 U/L (45-117); Anion Gap 6 (5-15); BUN 8 mg/dL (7-18); BUN/Creat Ratio 19.5 RATIO (10-20); Calcium,Total 8.2 mg/dL (8.5-10.1); Chloride 107 mmol/L (98-107); Creatinine, Serum 0.41 mg/dL (0.55-1.02); EST Glomerular Filtration Rate 196 mL/min (>60); Est Glom Filt Rate - Afr Amer 237 mL/min (>60); Estimated Creatinine Clearance 191.24 ml/min; Globulin 3.3 g/dL (2.2-4.2); Glucose 89 mg/dL (74-106); Potassium 3.4 mmol/L (3.5-5.1); Protein, Total 6.1 g/dL (6.4-8.2); Sodium Level 140 mmol/L (136-145)
[2021-07-23] MEDS: dexAMETHasone 10 MG/ML Vial 6 MG IV (10:00)
[2021-07-23] MEDS: Cyanocobalamin 500 MCG Tablet 2000 MCG PO (10:02)
[2021-07-23] MEDS: Enoxaparin 40 MG/0.4 ML Syringe SC ×2 (10:02→20:28)
[2021-07-23] MEDS: Cholecalciferol (VIT D3) 25 MCG TABLET (1,000 UNITS) 200 MCG PO (10:03)
[2021-07-23] MEDS: 0.9% Normal Saline 1,000 ML 100 ML IV ×2 (10:13→20:27)
--- NOTE | 2021-07-23 12:12 | US_ITS ---
STUDY: FIRST TRIMESTER OBSTETRICAL ULTRASOUND REASON FOR EXAM: Female, 26 years old hcg elevation - 4weeks 5 days by LMP, COVID + LMP: 06/20/2021 TECHNIQUE: Transvaginal TECHNICAL QUALITY: Adequate. PRIOR ULTRASOUND: None. FINDINGS: There is no demonstrated intrauterine gestational sac. There is no demonstrated yolk sac. The estimated gestation age (EGA) by LMP is 4 weeks, 5 days. The estimated date of delivery (ANNE) by LMP is 03/27/2022. The uterus measures 9.1 x 6.2 x 5.5 cm. There is no demonstrated uterine fibroid. The endometrial stripe measures 14.5 mm and is hyperechoic. The cervix is closed. The right ovary measures 2.5 x 2.8 x 3.2 cm. There is no right ovarian cyst. There is no visualized right adnexal mass or complex lesion. The left ovary measures 4.9 x 2.6 x 3.8 cm. There is a 2.0 x 2.3 x 2.9 cm complex ovarian cyst. There is a moderate amount of fluid in the cul de sac. US/Transvaginal w/Preg US IMPRESSION: No intrauterine identified. 2.0 x 2.3 x 2.19 m complex left ovarian cyst. Moderate amount of free fluid. Electronically Signed: Maria Elena Hooker MD at 14:05 EDT Tel , Service support ,
[2021-07-23] MEDS: Potassium Chloride Oral Tablet 20 MEQ 60 MEQ PO (12:34)
--- NOTE | 2021-07-23 16:19 | PN.HOSP_ITS ---
Subjective Subjective Patient states she may feel little bit better today. She admits however that she still gets fairly winded with exertion and is fatigued. Objective Data Objective Data Vital Signs: Vital Signs Temp Pulse Resp BP Pulse Ox 98.5 F 61 18 112/65 94 07/23/21 14:59 07/23/21 14:59 07/23/21 14:59 07/23/21 14:59 07/23/21 14:59 Oxygen Flow Rate (L/min) [ 6 AMBULATING with Oxygen #2] Oxygen Flow Rate (L/min) [ 4 AMBULATING with Oxygen #1] Oxygen Flow Rate (L/min) [ 0 AMBULATING on Room Air] Oxygen Flow Rate (L/min) 3 Oxygen Delivery Method Nasal Cannula Weight: 108.4 kg Body Mass Index (BMI) 37.8 Intake & Output: Intake and Output for Last 24 Hours 07/21/21 07/22/21 07/23/21 23:59 23:59 23:59 Intake Total 3003.34 / 3003.34 2751.66 / 2751.66 1206.67 / 1206.67 Output Total 1200 / 1200 2100 / 2100 Balance 1803.34 / 1803.34 651.66 / 651.66 1206.67 / 1206.67 Medical Nutrition Assessment Dietitian: Malnutrition Criteria Met Start: 07/21/21 10:21 Freq: Status: Active Protocol: Document 07/21/21 10:22 BP (Rec: 07/21/21 10:22 BP [id number]) Nutrition Malnutrition Evidence of Malnutrition Exists Yes Malnutrition (severe): Acute Illness/Injury Evidenced By Suboptimal Energy Intake ( Severe),Weight Loss (Severe) Clinical Problem Acute Disease or Injury Related Malnutrition Etiology related to inadequate oral intake and unintentional wt loss Signs/Symptoms as evidenced by pt reports consuming >50% energy intake compared to typical intake x 6 days with 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 Status Active Problem Recommendation Dietitian Recommendations/Changes Continue Regular diet. Will discontinue ensure per pt request- declines further ONS at this time, will provide as pt accepting. Lab / Micro Data Result Diagrams: 07/23/21 07:11 07/23/21 07:11 Labs: Laboratory Results - last 24 hr 07/23/21 07:11: HCG, Quant 172 H 07/23/21 07:11: WBC 2.4 L, RBC 4.34, Hgb 11.9 L, Hct 37.4, MCV 86.2, MCH 27.4, MCHC 31.8 L, RDW Std Deviation 40.5, RDW Coeff of Qing 12.9, Plt Count 140 L, MPV 10.9, Immature Gran % (Auto) 0.800, Neut % (Auto) 61.5, Lymph % (Auto) 31.1, [place] % (Auto) 6.6, Eos % (Auto) 0.0, Baso % (Auto) 0.0, Absolute Neuts (auto) 1.5 L, Absolute Lymphs (auto) 0.75 L, Nucleated RBC % 0 07/23/21 07:11: Sodium 140, Potassium 3.4 L, Chloride 107, Carbon Dioxide 27.0, Anion Gap 6, BUN 8, Creatinine 0.41 L, Estim Creat Clear Calc 191.24, Est GFR (MDRD) Af Amer 237, Est GFR (MDRD) Non-Af 196, BUN/Creatinine Ratio 19.5, Glucose 89, Calcium 8.2 L, Total Bilirubin 0.30, AST 20, ALT 23, Alkaline Phosphatase 48, Total Protein 6.1 L, Albumin 2.8 L, Globulin 3.3, Albumin/Globulin Ratio 0.8 L Micro: Microbiology 07/21/21 12:15 Sputum, Expectorated/Coughed Gram Stain - Final 07/21/21 12:15 Sputum, Expectorated/Coughed Respiratory Culture - Preliminary Gram negative cocco bacillus 07/21/21 01:00 Mucosa - Nasopharyngeal Respiratory Panel (PCR) - Final 07/21/21 01:07 Urine, Clean Catch Streptococcus pneumoniae Antigen (M - Final 07/21/21 01:07 Urine, Clean Catch Legionella Antigen - Final Radiography Diagnostic Testing: Radiology Impression Obstetrics Ultrasound 07/23/21 12:12 IMPRESSION: No intrauterine identified. 2.0 x 2.3 x 2.19 m complex left ovarian cyst. Moderate amount of free fluid. Electronically Signed: Maria Elena Hooker MD at 14:05 EDT Tel , Service support , Rhythm Strip Rhythm Strip: Sinus Rhythm Rate: 95 Ectopy: None Physical Exam Narrative Physical Examination: General: Awake, alert, oriented x 3 and cooperative, patient fatigued and ill- appearing, no evidence respiratory distress. Skin: Normal color, normal turgor, no icterus, no cyanosis. HEENT: AT/NC, EOMI, PERRLA, dry MM, no carotid bruits or JVD noted. Lungs: Diffusely diminished, no evidence respiratory distress, no rales, ronchi or wheezing. Heart: Mildly tachycardic with regular rhythm; no gallop, rub audible. Abdomen: Soft, morbidly obese, NTTP, ND, distant hyperactive BS, no obvious HSM however habitus makes examination difficult. Extremities: No cyanosis, clubbing, or edema. Neurological: Patient awake, alert, oriented as noted, cognitive function intact; pupils equally reactive to light and accommodation, cranial nerves II- XII grossly normal, moving all 4 extremities, no focal deficits, strength severely global decrease secondary to acute presentation. Psychiatric: Affect appears fatigued, ill-appearing, no acute evidence of depressive or anxiety feelings. Const alert, oriented x3 and no apparent distress Constitutional Narrative: Young white female, sitting up in bed watching telev 5appon, appears markedly fatigued, minimally short of breath with conversation, nontoxic but mild tachypnea Exam Limitations: no limitations HEENT head/scalp atraumatic, moist oral mucous membranes and dentition normal HEENT Narrative: No thrush Head and Scalp: normocephalic Resp normal respiratory effort, no retractions, no use of accessory muscles and clear to auscultation bilaterally Resp Narrative: Diminished but clear Cardio regular rate, regular rhythm, S1 normal heart sound, S2 normal heart sound, no murmurs, no rub, no gallops, no clicks and no JVD GI normal to inspection, nondistended, normoactive bowel sounds, soft to palpation, non-tender and non-distended Extremity no clubbing, cyanosis or edema Neuro oriented x3 Sensorium / Orientation: awake and alert Speech: speech normal Assessment & Plan Assessment/Plan (1) Pneumonia due to COVID-19 virus: (2) Acute respiratory failure with hypoxia: (3) Leukopenia: (4) Thrombocytopenia: (5) : PLAN: Acute hypoxic respiratory failure secondary to COVID-19 pneumonia -Continue remdesivir day 01/28 -Continue Decadron day 02/02 -Patient was assessed on room air and oxygen saturation dropped to 86% -She required 6 L of nasal cannula to keep her sats greater than 92% with ambulation -Continue supplemental oxygen--> currently on 3 L nasal cannula at rest with an SPO2 of 94% -Continuous pulse oximetry -Wean oxygen as able -Once patient stabilizes from an oxygenation standpoint we will consider discharge Leukopenia/thrombocytopenia -Suspect related to Covid -White count relatively stable -Platelets continue to trend upward -Monitor counts Positive hCG -Rapid test was positive -Serum quant was 114 but repeat was only 172 at 48 hours suggesting there was not a viable -Transvaginal ultrasound completed and no intrauterine identified -Complex left ovarian cyst -Have patient follow-up with INSTR[facility]MIST after discharge and. Of quarantine is resolved History of Yana-en-Y gastric bypass surgery -This was done in 01/15/2021 -Continue vitamin supplementation -Patient has lost 85 pounds Obesity -See above DVT prophylaxis -Reinitiate Lovenox -SCDs CODE STATUS -Full code Charges/Coding Visit Charges Inpatient E&M: 14729 Subs Hosp L2
[2021-07-23] MEDS: Acetaminophen 325 MG Tablet 650 MG PO (20:33)
[2021-07-23] MEDS: proCHLORPERazine 10 MG/2 ML Vial 5 MG IV (20:41)
[2021-07-23] MEDS: BENZOCAINE/MENTHOL 1 LOZENGE MUCOUS MEM (20:41)
[2021-07-23] MEDS: MELATONIN 3 MG TABLET PO (20:41)
[2021-07-24] VITALS (9 sets, daily range): BP systolic 121–125; BP diastolic 62–82; PULSE 42–78; RESP 18–21; TEMP 36.5–36.6; O2SAT 79–99
[2021-07-24] MEDS: Albuterol 2.5 MG/3 ML VIAL.NEB. INHALATION (05:27)
[2021-07-24 07:52] LABS: Absolute Lymphocyte Count 0.95 X10^3/uL (0.83-4.51); Absolute Neutrophil Count 1.4 X10^3/uL (2.0-7.7); Hematocrit 36.2 % (37-47); Lymphocyte # 0.95 X10^3/ul (0.83-4.51); Lymphocyte % 37.5 % (19-41); Mean Corp Hgb Conc 33.1 g/dL (32-36); Mean Corpuscular Volume 84.4 fL (81-99); Mean Platelet Vol. 10.2 fl (6.2-12.0); Monocyte# 0.19 X10^3/uL; Monocyte% 7.5 % (0-10); NRBC Flagged by Analyzer 0 % (0-5); Neutrophil # 1.37 X10^3/uL (2.7-7.7); Neutrophil % 54.2 % (47-70); POSITIVE MORPHOLOGY YES; Platelet Count 155 K/mm3 (150-450); RBC Distribution Width CV 12.9 % (11.6-14.6); RBC Distribution Width SD 39.8 fl (35.1-43.9); Red Blood Count 4.29 M/mm3 (4.2-5.4); White Blood Count 2.5 K/mm3 (4.4-11.0)
[2021-07-24 07:54] LABS: Differential Indicated SCAN CRITERIA MET
[2021-07-24 08:06] LABS: ALB/GLOB Ratio 0.9 RATIO (0.9-2.4); AST(SGOT) 18 U/L (15-37); Alanine Aminotransfer ALT/SGPT 24 U/L (13-56); Albumin, Serum 2.8 g/dL (3.2-5.0); Alkaline Phosphatase 50 U/L (45-117); Anion Gap 6 (5-15); BUN 10 mg/dL (7-18); Calcium,Total 8.2 mg/dL (8.5-10.1); Chloride 108 mmol/L (98-107); Creatinine, Serum 0.37 mg/dL (0.55-1.02); EST Glomerular Filtration Rate 221 mL/min (>60); Est Glom Filt Rate - Afr Amer 267 mL/min (>60); Estimated Creatinine Clearance 211.91 ml/min; Glucose 95 mg/dL (74-106); Potassium 3.4 mmol/L (3.5-5.1); Protein, Total 5.8 g/dL (6.4-8.2); Sodium Level 142 mmol/L (136-145)
[2021-07-24] MEDS: dexAMETHasone 10 MG/ML Vial 6 MG IV (10:28)
[2021-07-24] MEDS: Multivitamins,Therapeutic Tablet 1 TABLET PO (10:28)
[2021-07-24] MEDS: Enoxaparin 40 MG/0.4 ML Syringe SC (10:29)
[2021-07-24] MEDS: Cyanocobalamin 500 MCG Tablet 2000 MCG PO (10:30)
[2021-07-24] MEDS: Cholecalciferol (VIT D3) 25 MCG TABLET (1,000 UNITS) 200 MCG PO (10:31)
--- NOTE | 2021-07-24 11:45 | DS.PCM_ITS ---
Providers Date of Admission: 07/20/21 Primary Care Physician: Dr. Husam Fletcher MD Reason For Visit: COVID, HYPOXIC Diagnosis Discharge Diagnosis (1) Pneumonia due to COVID-19 virus: Status: Acute Code(s): U07.1 - COVID-19; J12.82 - Pneumonia due to coronavirus disease 2019 (2) Acute respiratory failure with hypoxia: Status: Acute Code(s): J96.01 - Acute respiratory failure with hypoxia (3) Leukopenia: Status: Acute Code(s): D72.819 - Decreased white blood cell count, unspecified (4) Thrombocytopenia: Status: Acute Code(s): D69.6 - Thrombocytopenia, unspecified (5) : Status: Acute Code(s): Z34.90 - Encounter for supervision of normal , unspecified, unspecified trimester Medications at Discharge Home Medications albuterol sulfate [Ventolin HFA] 2 puff INHALATION Q6H PRN 07/20/21 ondansetron 4 mg PO Q6H 07/20/21 B12 2,000 mcg PO/SL 07/21/21 Bariatric Multivitamins 1 cap DAILY 07/21/21 Vitamin D3 8,000 units DAILY 07/21/21 aspirin [[place] Aspirin] 81 mg PO DAILY #20 tab 07/24/21 dexamethasone [Decadron] 6 mg PO DAILY #6 tab 07/24/21 Hospital Course Operations None Procedures None Summary of Care Provided Minutes Spent on Discharge: 41 Hospital Course: Kaia Manning is a 26-year-old white female who presented to the emergency department at [facility] on 07/21/2021 with a chief complaint of recent diagnosis of Covid with worsening symptoms. She reported that 4 days prior to coming into the hospital she developed fever, chills, frontal headaches, nausea with dry heaving as well as abdominal cramping, body aches, cough, and progressively worsening shortness of breath that prompted ED evaluation. She had been tested for Covid on 07/19/2021 and was found to be positive at that time. She is unvaccinated. In the emergency department she had a temperature of 101.3, heart rate of 103 and a respiratory rate of 37. Her oxygen saturations were 87 to 88% resting on room air. She was given a normal saline bolus as well as IV Decadron x1 dose in the emergency department and admitted to the medical surgical floor. On admission she denied but she had a positive test. Quantitative test was performed and was found to be 117. This was repeated at 48 hours and was found to only be 172. With the lack of doubling hCG and endovaginal ultrasound was performed and no products of conception or pole were noted and no adnexal masses were found. Ectopic could not 100% be ruled out but with no masses known in the adnexal area on ultrasound she was instructed to return if any abdominal pain developed. It was felt that her hCG elevation was most likely due to a chemical versus an early spontaneous . She was instructed to follow-up and call her OB on Sunday to discuss with them how they would like to proceed. During her hospitalization she received remdesivir x4 doses and was maintained on Decadron. Her oxygen requirements maxed at 6 L nasal cannula but she was able to eventually be weaned to 2 L nasal cannula at rest and 4 L with exertion. Given her stability and improvement in oxygenation she was felt stable for discharge on 07/24/2021 with the instructions of returning the hospital if she developed any new symptoms. She will be discharged to complete her course of 10 days of Decadron and was placed on a baby aspirin to continue until she is out of quarantine which is 08/05/2021. She was discharged in stable condition with instructions to follow-up with pulmonary and her PCP. Discharge diagnoses: Acute hypoxic respiratory failure secondary to Covid pneumonia COVID-19 Elevated beta hCG Leukopenia-persistent Thrombocytopenia-resolved History of Yana-en-Y gastric bypass surgery Obesity Physical Exam Const alert, oriented x3 and no apparent distress Constitutional Narrative: Young white female, sitting up in bed watching television, appears less fatigued and much less short of breath with conversation, nontoxic, pleasant General Appearance: cooperative, comfortable, well kempt and well developed Exam Limitations: no limitations Nutritional Appearance: obese HEENT normocephalic, head/scalp atraumatic, moist oral mucous membranes and dentition normal HEENT Narrative: No thrush noted Eyes PERRL, EOMs intact bilaterally and conjunctivae normal Neck no lymphadenopathy, supple and no JVD Neck Narrative: Trachea midline, no thyromegaly noted Resp normal respiratory effort, no retractions, no use of accessory muscles and clear to auscultation bilaterally Resp Narrative: Diminished but clear Auscultation: Negative for crackles, rales, rhonchi or wheezes Cardio regular rate, regular rhythm, S1 normal heart sound, S2 normal heart sound, no m urmurs, no rub, no gallops, no clicks and no JVD GI normal to inspection, nondistended, normoactive bowel sounds, soft to palpation, non-tender and non-distended Extremity no clubbing, cyanosis or edema Skin no rashes or lesions noted, no wounds, skin turgor normal and no jaundice Neuro oriented x3, moves all extremities and no focal motor deficits Sensorium / Orientation: awake and alert Speech: speech normal Psych affect normal Medical Records Data Medical Nutrition Assessment Dietitian: Malnutrition Criteria Met Start: 07/21/21 10:21 Freq: Status: Active Protocol: Document 07/21/21 10:22 BP (Rec: 07/21/21 10:22 BP [id number]) Nutrition Malnutrition Evidence of Malnutrition Exists Yes Malnutrition (severe): Acute Illness/Injury Evidenced By Suboptimal Energy Intake ( Severe),Weight Loss (Severe) Clinical Problem Acute Disease or Injury Related Malnutrition Etiology related to inadequate oral intake and unintentional wt loss Signs/Symptoms as evidenced by pt reports consuming >50% energy intake compared to typical intake x 6 days 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 Status Active Problem Recommendation Dietitian Recommendations/Changes Continue Regular diet. Will discontinue ensure per pt request- declines further ONS at this time, will provide as pt accepting. Weight / BMI Weight Weight: 107 kg Body Mass Index (BMI) 37.8 ABG / Lab / Microbiology Data Result Diagrams: 07/24/21 07:40 07/24/21 07:40 Laboratory: Laboratory Results - last 24 hr 07/24/21 07:40: WBC 2.5 L, RBC 4.29, Hgb 12.0, Hct 36.2 L, MCV 84.4, MCH 28.0, MCHC 33.1, RDW Std Deviation 39.8, RDW Coeff of Qing 12.9, Plt Count 155, MPV 10.2, Immature Gran % (Auto) 0.800, Neut % (Auto) 54.2, Lymph % (Auto) 37.5, [place] % (Auto) 7.5, Eos % (Auto) 0.0, Baso % (Auto) 0.0, Absolute Neuts (auto) 1.4 L, Absolute Lymphs (auto) 0.95, Nucleated RBC % 0 07/24/21 07:40: Sodium 142, Potassium 3.4 L, Chloride 108 H, Carbon Dioxide 28.0, Anion Gap 6, BUN 10, Creatinine 0.37 L, Estim Creat Clear Calc 211.91, Est GFR (MDRD) Af Amer 267, Est GFR (MDRD) Non-Af 221, BUN/Creatinine Ratio 27.0 H, Glucose 95, Calcium 8.2 L, Total Bilirubin 0.30, AST 18, ALT 24, Alkaline Phosphatase 50, Total Protein 5.8 L, Albumin 2.8 L, Globulin 3.0, Albumin/Globulin Ratio 0.9 Microbiology: Microbiology 07/21/21 12:15 Sputum, Expectorated/Coughed Gram Stain - Final 07/21/21 12:15 Sputum, Expectorated/Coughed Respiratory Culture - Preliminary Gram negative cocco bacillus 07/21/21 01:00 Mucosa - Nasopharyngeal Respiratory Panel (PCR) - Final 07/21/21 01:07 Urine, Clean Catch Streptococcus pneumoniae Antigen (M - Final 07/21/21 01:07 Urine, Clean Catch Legionella Antigen - Final Radiography Diagnostic Testing: Radiology Impression Obstetrics Ultrasound 07/23/21 12:12 IMPRESSION: No intrauterine identified. 2.0 x 2.3 x 2.19 m complex left ovarian cyst. Moderate amount of free fluid. Electronically Signed: Maria Elena Hooker MD at 14:05 EDT Tel , Service support , D/C Instructions Discharge Diet: No restrictions Discharge Activity: Return to Normal Activity (Quarantine until 08/09/2021) Return to work on: 08/05/21 Meaningful Use Info Meaningful Use Diagnoses (Choose all that apply): None applicable Discharge Plan Admission Admit Date/Time: 07/20/21 23:52 Primary Reason for Your Visit: COVID-19 pneumonia Attending Provider: Siobhan Lyon Primary Care Provider: Husam Fletcher Instructions Additional Instructions / Restrictions: 1. Quarantine until 08/05/2021 2. Recommend follow-up with your OB for repeated hCG--> would call to discuss details with them on Sunday -Urine was positive on admission and therefore serum quantitative was performed and elevated but repeated in 48 hours and not doubled(114--> 172). Transvaginal ultrasound was performed and showed no signs of products of conception and no adnexal mass. 3. Follow-up with pulmonary as recommended below 4. Continue oxygen until directed otherwise by physician Discharge Orders/Prescriptions Prescriptions: New dexamethasone [Decadron] 6 mg tablet 6 mg PO DAILY Qty: 6 RF: 0 aspirin [[place] Aspirin] 81 mg tablet,delayed release (DR/EC) 81 mg PO DAILY Qty: 20 RF: 0 Continued albuterol sulfate [Ventolin HFA] 90 mcg/actuation Hfa Aerosol Inhaler 2 puff INHALATION Q6H PRN (Reason: Wheezing) RF: 0 ondansetron 4 mg Tablet,Disintegrating 4 mg PO Q6H RF: 0 B12 2,000 MCG tablet 2,000 mcg PO/SL RF: 0 Bariatric Multivitamins 1 CAP tablet 1 cap DAILY RF: 0 Vitamin D3 8,000 UNITS tablet 8,000 units DAILY RF: 0 Discontinued Zithromax Z-Roderick 250 mg Capsule PO RF: 0 Referrals / Follow Up: Manuel Parker MD [STAFF PHYSICIAN] - Within 1 Month (Post Covid) Husam Fletcher MD [Primary Care Provider] - Within 1 Month Disposition Disposition (needs filled in before D/C Order can be placed): Home, Self Care Charges/Coding Visit Charges Inpatient E&M: 85992 Disch Hosp
--- NOTE | 2021-07-24 12:06 | DCINST_ITS ---
Discharge Instructions Diet Discharge Diet: No restrictions Activity Return to work on:: 08/05/21 Follow Up Care Test Results: Test results from this visit will be discussed in further detail at your follow-up appointment, if applicable. Discharge Plan Admission Admit Date/Time: 07/20/21 23:52 Primary Reason for Your Visit: COVID-19 pneumonia Attending Provider: Siobhan Lyon Primary Care Provider: Husam Fletcher Instructions Additional Instructions / Restrictions: 1. Quarantine until 08/05/2021 2. Recommend follow-up with your OB for repeated hCG--> would call to discuss details with them on Sunday -Urine was positive on admission and therefore serum quantitative was performed and elevated but repeated in 48 hours and not doubled(114--> 172). Transvaginal ultrasound was performed and showed no signs of products of conception and no adnexal mass. 3. Follow-up with pulmonary as recommended below 4. Continue oxygen until directed otherwise by physician Discharge Orders/Prescriptions Prescriptions: New dexamethasone [Decadron] 6 mg tablet 6 mg PO DAILY Qty: 6 RF: 0 aspirin [[place] Aspirin] 81 mg tablet,delayed release (DR/EC) 81 mg PO DAILY Qty: 20 RF: 0 Continued albuterol sulfate [Ventolin HFA] 90 mcg/actuation Hfa Aerosol Inhaler 2 puff INHALATION Q6H PRN (Reason: Wheezing) RF: 0 ondansetron 4 mg Tablet,Disintegrating 4 mg PO Q6H RF: 0 B12 2,000 MCG tablet 2,000 mcg PO/SL RF: 0 Bariatric Multivitamins 1 CAP tablet 1 cap DAILY RF: 0 Vitamin D3 8,000 UNITS tablet 8,000 units DAILY RF: 0 Discontinued Zithromax Z-Roderick 250 mg Capsule PO RF: 0 Referrals / Follow Up: Manuel Parker MD [STAFF PHYSICIAN] - Within 1 Month (Post Covid) Husam Fletcher MD [Primary Care Provider] - Within 1 Month Disposition Disposition (needs filled in before D/C Order can be placed): Home, Self Care
[2021-07-24] MEDS: Potassium Chloride Oral Tablet 20 MEQ 60 MEQ PO (12:52)
--- NOTE | 2021-07-25 14:57 | CASEMGMT ---
WALDEMAR VIVAS COVID Follow Up Phone Call: Call Date: 07/25/21 Discharge Date: 07/24/21 Time of Call:[id number] Duration:<1min Admitting Dx: COVID WALDEMAR VIVAS attempted to complete follow up phone call after recent hospitalization for COVID. Received an unidentified voicemail, no message left.
== END 2021-07-24 16:52 | disposition home or self-care (01) | DRG 137 ==
LOC: ED 21:36 → MS3 07-21 00:22
PROVIDERS: Admitting Provider Family Medicine; Emergency Provider Emergency Medicine; PCP Family Medicine; Visit Provider Internal Medicine
DX: U07.1 COVID-19 (principal); J12.82 Pneumonia due to coronavirus disease 2019; J96.01 Acute respiratory failure with hypoxia; D69.6 Thrombocytopenia, unspecified; Z28.3 Underimmunization status; Z98.84 Bariatric surgery status; Z66 Do not resuscitate; Z68.37 Body mass index [BMI] 37.0-37.9, adult; E66.01 Morbid (severe) obesity due to excess calories; N83.202 Unspecified ovarian cyst, left side; D72.810 Lymphocytopenia; Z32.01 Encounter for pregnancy test, result positive
CPT/HCPCS: 36415; 71045; 76817; 80053; 82728; 83615; 83690; 83735; 83880; 84100; 84145; 84702; 84703; 85025; 85379; 86140; 87070; 87077; 87205; 87449; 87633; 93005; 94640; 94762; 97802; 99251; 99285; J7030; J7050; A4216; G0463; J2405